=== PATIENT | female | born 1980 | race Caucasian/White ===

== ENCOUNTER 2018-10-25 13:59 | Emergency (ER) | payer OTHER ==
[2018-10-25 14:15] VITALS: BP 116/55; PULSE 81; TEMP 98; BMI 23.5
--- NOTE | 2018-10-25 15:25 | PDOC ---
History of Present Illness - General Chief Complaint: Headache Stated Complaint: LIGHTHEADED, HEADACHE Time Seen by Provider: 10/25/18 15:20 History Source: Patient Exam Limitations: No Limitations - History of Present Illness Initial Comments: 10/25/18 18:36 Patient is an otherwise healthy 38-year-old female who presents to the ER for a headache. Patient states that she's had a headache for the past 2 months on and off. She states that last night the pain became more intense on the right side so she wanted to come to the ER for evaluation today. She states that she also felt some numbness and tingling in her right arm. She also associates neck pain and dizziness with her symptoms. She denies photophobia, phonophobia, fevers, chills, nausea, vomiting, weakness to the extremities, chest pain, shortness of breath. Past History - Travel Traveled outside of the country in the last 30 days: No Close contact w/someone who was outside of country & ill: No - Past Medical History Allergies/Adverse Reactions: Allergies Allergy/AdvReac Type Severity Reaction Status Date / Time No Known Allergies Allergy Verified 10/25/18 14:13 Home Medications: Ambulatory Orders Ibuprofen 600 mg PO Q6H #30 tablet 10/25/18 Ibuprofen [Advil -] 400 mg PO QID PRN 10/25/18 COPD: No - Suicide/Smoking/Psychosocial Hx Smoking History: Never smoked Hx Alcohol Use: Yes (SOCIAL) Drug/Substance Use Hx: No Substance Use Type: None Review of Systems - Review of Systems Able to Perform ROS?: Yes Comments:: 10/25/18 15:25 CONSTITUTIONAL: Absent: fever, chills, diaphoresis, generalized weakness, malaise, loss of appetite HEENT: Absent: rhinorrhea, nasal congestion, throat pain, throat swelling, difficulty swallowing, mouth swelling, ear pain, eye pain, visual Changes CARDIOVASCULAR: Absent: chest pain, loss of consciousness, palpitations, irregular heart rate, peripheral edema RESPIRATORY: Absent: cough, shortness of breath, dyspnea with exertion, orthopnea, wheezing, stridor, hemoptysis GASTROINTESTINAL: Absent: abdominal pain, abdominal distension, nausea, vomiting, diarrhea, constipation, melena, hematochezia GENITOURINARY: Absent: dysuria, frequency, urgency, hesitancy, hematuria, flank pain, genital pain MUSCULOSKELETAL: Absent: myalgia, arthralgia, joint swelling SKIN: Absent: rash, itching, pallor HEMATOLOGIC/IMMUNOLOGIC: Absent: easy bleeding, easy bruising, lymphadenopathy, frequent infections ENDOCRINE: Absent: unexplained weight gain, unexplained weight loss, heat intolerance, cold intolerance NEUROLOGIC: Present: headache Absent: headache, focal weakness or paresthesias, dizziness, unsteady gait, seizure, mental status changes, bladder or bowel incontinence PSYCHIATRIC: Absent: anxiety, depression, suicidal or homicidal ideation, hallucinations. Is the patient limited [place] proficient: No *Physical Exam - Vital Signs Last Vital Signs Temp Pulse Resp BP Pulse Ox 98 F 81 18 116/55 L 100 10/25/18 14:13 10/25/18 14:13 10/25/18 14:13 10/25/18 14:13 10/25/18 14:13 - Physical Exam Comments: 10/25/18 15:25 GENERAL: Well developed, well nourished. Awake and alert. No acute distress. HEENT: Normocephalic, atraumatic. PERRLA, EOMI. No conjunctival pallor. Sclera are non- icteric. Moist mucous membranes. Oropharynx is clear. NECK: Supple. Full ROM. No JVD. Carotid pulses 2+ and symmetric, without bruits. No thyromegaly. No lymphadenopathy. CARDIOVASCULAR: Regular rate and rhythm. No murmurs, rubs, or gallops. Distal pulses are 2+ and symmetric. PULMONARY: No evidence of respiratory distress. Lungs clear to auscultation bilaterally. No wheezing, rales or rhonchi. ABDOMINAL: Soft. Non-tender. Non-distended. No rebound or guarding. No organomegaly. Normoactive bowel sounds. MUSCULOSKELETAL Normal range of motion at all joints. No bony deformities or tenderness. No CVA tenderness. EXTREMITIES: No cyanosis. No clubbing. No edema. No calf tenderness. SKIN: Warm and dry. Normal capillary refill. No rashes. No jaundice. NEUROLOGICAL: Alert, awake, appropriate. Cranial nerves 2-12 intact. No deficits to light touch and temperature in face, upper extremities and lower extremities. No motor deficits in the in face, upper extremities and lower extremities. Normoreflexic in the upper and lower extremities. Normal speech. Toes are down- going bilaterally. Gait is normal without ataxia. PSYCHIATRIC: Cooperative. Good eye contact. Appropriate mood and affect. Moderate Sedation - Procedure Monitoring Vital Signs: Procedure Monitoring Vital Signs Temperature 98 F 10/25/18 14:13 Pulse Rate 81 10/25/18 14:13 Respiratory Rate 18 10/25/18 14:13 Blood Pressure 116/55 L 10/25/18 14:13 O2 Sat by Pulse Oximetry (%) 100 10/25/18 14:13 ED Treatment Course - LABORATORY CBC & Chemistry Diagram: 10/25/18 16:15 10/25/18 16:15 Medical Decision Making - Medical Decision Making 10/25/18 18:38 Patient is a 38-year-old female otherwise healthy who presents to the ER for 2 months of intermittent headache. On exam patient is neurologically intact with no focal findings. Gait is intact. Patient states that this point the numbness and tingling in her right arm has resolved, as well as her neck pain Patient able to fully flex and extend neck. Negative Brudzinski and Kernig signs. Lab work is unremarkable at this time. Patient currently pending CT read. Patient given Reglan and Benadryl for her symptoms. 10/25/18 18:52 CT head is negative for acute pathology. No ischemia, bleed. Ventricles are a normal size Will give toradol Most likley a tension headache DC home I discussed the physical exam findings, ancillary test results and final diagnoses with the patient. I answered all of the patient's questions. The patient was satisfied with the care received and felt comfortable with the discharge plan and treatment plan. The Patient agrees to follow up with the primary care physician/specialist within 24-72 hours. Return precautions were given. *DC/Admit/Observation/Transfer Diagnosis at time of Disposition: Headache Qualifiers: Headache type: unspecified Headache chronicity pattern: acute headache Intractability: not intractable Qualified Code(s): R51 - Headache - Discharge Dispostion Disposition: HOME Condition at time of disposition: Stable Decision to Admit order: No - Referrals Referrals: Jerrod Esteban MD [Staff Physician] - - Patient Instructions Printed Discharge Instructions: DI for Headache Additional Instructions: You were evaluated for your headache today. Your CAT scan was normal today. Please drink plenty of fluids. You may take Motrin 600 mg every 6 hours as needed for pain not to exceed 3000 mg a day. Please follow up with neurology this week. Referral has been provided for you. Return to the ER for fevers, chills, worsening pain despite treatment, weakness to the extremities, numbness and tingling or if you have any changes in your symptoms. Usted fue evaluado para mack dolor de bri hoy. Tu TAC fue normal hoy. Por favor, shadia muchos lquidos. Puede uday Motrin 600 mg cada 6 horas segn sea necesario para que el dolor no exceda los 3000 mg al da. Por favor, sigue con neurologa esta semana. La referencia se flores proporcionado para usted. Regrese a la uday de emergencias para las fiebres, escalofros, dolor que empeora a pesar del tratamiento, debilidad en las extremidades, entumecimiento y hormigueo o si tiene algn cambio en slim sntomas. Print Language: IRISH - Post Discharge Activity
[2018-10-25] MEDS ORDERED: METOCLOPRAMIDE HCL INJECTION 10 MG/2 ML VIAL IVPB ONE (15:37)
[2018-10-25] MEDS ORDERED: SODIUM CHLORIDE 1,000 ML IV STA (15:37)
[2018-10-25] MEDS ORDERED: METOCLOPRAMIDE HCL INJECTION 10 MG/2 ML VIAL ONE (15:59)
[2018-10-25 16:49] LABS: BASO % 0.4 % (0-2.0); HEMOGLOBIN 12.3 GM/dL (10.7-15.3); LYMPH % 14.3 % (8-40); MCH 29.5 pg (25.7-33.7); MCHC 35.2 g/dl (32.0-36.0); MEAN CELL VOLUME 83.9 fl (80-96); MEAN PLT VOLUME 9.1 fl (7.5-11.1); MONO % 5.9 % (3.8-10.2); NEUT % 78.4 % (42.8-82.8); PLATELET COUNT 235 K/MM3 (134-434); RBC 4.17 M/mm3 (3.60-5.2)
[2018-10-25 17:16] LABS: ALBUMIN 3.8 g/dl (3.4-5.0); ALK PHOS 92 U/L (45-117); ANION GAP 6 MMOL/L (8-16); BILIRUBIN,TOTAL 1.3 mg/dL (0.2-1); BLOOD UREA NITROGEN 9 mg/dL (7-18); CALCIUM 9.1 mg/dL (8.5-10.1); CHLORIDE 104 mmol/L (98-107); CO2 26 mmol/L (21-32); CREATININE 0.6 mg/dL (0.55-1.3); GLUCOSE,RANDOM 90 mg/dL (74-106); POTASSIUM 4.4 mmol/L (3.5-5.1); SGOT/AST 28 U/L (15-37); SGPT/ALT 30 U/L (13-61); SODIUM 136 mmol/L (136-145); TOT PROT 8.4 g/dl (6.4-8.2)
[2018-10-25] MEDS ORDERED: KETOROLAC TROMETHAMINE 30 MG/1 ML VIAL IVPUSH ONE (18:51)
[2018-10-25] MEDS ORDERED: KETOROLAC TROMETHAMINE 30 MG/1 ML VIAL ONE (19:18)
== END 2018-10-25 19:32 | disposition home or self-care (01) ==
LOC: JER 13:59
PROC: 3E033GC Introduction of Other Therapeutic Substance into Peripheral Vein, Percutaneous Approach (ICD-10-PCS; principal; 2018-10-25)
PROC: 3E033GC Introduction of Other Therapeutic Substance into Peripheral Vein, Percutaneous Approach (ICD-10-PCS; 2018-10-25)
PROC: 3E0333Z Introduction of Anti-inflammatory into Peripheral Vein, Percutaneous Approach (ICD-10-PCS; 2018-10-25)
DX: R51 Headache (principal)
CPT/HCPCS: 36415; 70450-TC; 80053; 84702; 85025; 99282-25; J7030

== ENCOUNTER 2021-06-04 13:10 | Emergency (ER) | payer OTHER ==
[2021-06-04 13:24] VITALS: TEMP 98.4; BMI 30.4
[2021-06-04] MEDS ORDERED: SODIUM CHLORIDE 1,000 ML IV STA (14:00)
[2021-06-04] MEDS ORDERED: METOCLOPRAMIDE HCL INJECTION 10 MG/2 ML VIAL IVPB ONE (14:00)
[2021-06-04] MEDS ORDERED: KETOROLAC TROMETHAMINE 60 MG/2 ML VIAL IVPUSH ONE (14:00)
[2021-06-04] MEDS ORDERED: METOCLOPRAMIDE HCL INJECTION 10 MG/2 ML VIAL ONE (14:06)
[2021-06-04] MEDS ORDERED: KETOROLAC TROMETHAMINE 15 MG/ML VIAL ONE (14:06)
[2021-06-04] MEDS ORDERED: ACETAMINOPHEN 1000 MG/100 ML VIAL (NON FORMULARY) IVPB ONE (15:15)
[2021-06-04] MEDS ORDERED: ACETAMINOPHEN INJECTION 100 ML IVPB ONE (15:24)
[2021-06-04 20:01] VITALS: BP 124/77; PULSE 68
== END 2021-06-04 20:01 | disposition home or self-care (01) ==
LOC: JER 13:10 → JERFT 13:10
PROC: 3E033GC Introduction of Other Therapeutic Substance into Peripheral Vein, Percutaneous Approach (ICD-10-PCS; principal; 2021-06-04)
DX: R51.9 Headache, unspecified (principal)
CPT/HCPCS: 70450-TC; 99285-25; J0131

== ENCOUNTER → 2022-07-08 | Emergency (ER) | payer OTHER ==
[~2022-07-08] MED LIST: CEFTRIAXONE 1 GM/50 ML BAG ONE; CEFTRIAXONE 1,000 MG in DEXTROSE 5%-WATER - 50 ML IVPB ONE; SODIUM CHLORIDE 1,000 ML IV STA; VANCOMYCIN 1 GM in D5W (PRE-DOCKED) 1,000 MG/250 ML IVPB ONE; VANCOMYCIN/WATER FOR INJ (PEG) 1,000 MG/200 ML BAG IVPB ONE
[2022-07-08 14:16] VITALS: RESP 18; BMI 21.9
[2022-07-08 15:42] LABS: EPI CELLS 12 /uL (0-25.1); HYALINE CASTS 0 /uL (0-3.1); URINE APPEARANCE CLEAR; URINE BACTERIA 116 /uL (0-1359); URINE BILIRUBIN NEGATIVE (NEGATIVE); URINE COLOR YELLOW; URINE GLUCOSE (UA) NEGATIVE (NEGATIVE); URINE KETONE NEGATIVE (NEGATIVE); URINE LEUK ESTERASE NEGATIVE (NEGATIVE); URINE NITRITE NEGATIVE (NEGATIVE); URINE PROTEIN NEGATIVE (NEGATIVE); URINE UROBILINOGEN 0.2 mg/dL (0.2-1.0); URINE WBC 4 /uL (0-25.8)
[2022-07-08 15:43] LABS: HCG,QUALITATIVE URINE Negative
[2022-07-08 15:44] LABS: INR 1.12 (0.83-1.09); PROTHROMBIN TIME (PATIENT) 12.9 SEC (9.7-13.0)
[2022-07-08 15:45] LABS: URINE RBC 53.8 /uL (0-23.9)
[2022-07-08 15:46] LABS: BASO % 0.4 % (0-2.0); EOS % 0.7 % (0-4.5); HEMATOCRIT 34.5 % (32.4-45.2); HEMOGLOBIN 11.7 GM/dL (10.7-15.3); LYMPH % 20.9 % (8-40); MCH 30.6 pg (25.7-33.7); MCHC 33.9 g/dl (32.0-36.0); MEAN CELL VOLUME 90.2 fl (80-96); MEAN PLT VOLUME 8.2 fl (7.5-11.1); MONO % 6.3 % (3.8-10.2); NEUT % 71.7 % (42.8-82.8); PLATELET COUNT 284 10^3/uL (134-434); RBC 3.83 M/mm3 (3.60-5.2); RDW 14.1 % (11.6-15.6); WHITE BLOOD COUNT 6.9 K/mm3 (4.0-10.0)
[2022-07-08 16:06] LABS: ALBUMIN 3.8 g/dl (3.4-5.0)
[2022-07-08 16:09] LABS: CREATININE 0.5 mg/dL (0.55-1.3)
[2022-07-08 16:10] LABS: BILIRUBIN,TOTAL 1.3 mg/dL (0.2-1)
[2022-07-08 20:58] VITALS: PULSE 75; TEMP 98.6
[2022-07-08 21:00] VITALS: BP 139/80
== END | disposition short-term general hospital (02) ==
LOC: JER 13:54
PROC: 3E033GC Introduction of Other Therapeutic Substance into Peripheral Vein, Percutaneous Approach (ICD-10-PCS; principal; 2022-07-08)
DX: M65.841 Other synovitis and tenosynovitis, right hand (principal)
CPT/HCPCS: 0241U-QW; 36415; 73130-TC-RT-FY; 80053; 81003; 83605; 84703; 85025; 85610; 87086; 93005; 93010; 99285-25

== ENCOUNTER 2023-01-30 22:04 | Emergency (ER) | payer OTHER ==
[2023-01-30 22:27] VITALS: BP 138/82; PULSE 74; RESP 18; TEMP 98.6; BMI 27.1
[2023-01-30 23:55] LABS: THROAT:GRP A STREP NOT DETECTED (NOTDETECTED)
[2023-01-31] MEDS ORDERED: DEXAMETHASONE SOD PHOSPHATE 10 MG/1 ML VIAL IM ONE (00:42)
[2023-01-31] MEDS ORDERED: DEXAMETHASONE SOD PHOSPHATE 10 MG/1 ML VIAL ONE (00:43)
== END 2023-01-31 00:47 | disposition home or self-care (01) ==
LOC: JER 22:04
PROC: 3E0233Z Introduction of Anti-inflammatory into Muscle, Percutaneous Approach (ICD-10-PCS; principal; 2023-01-31)
DX: R07.0 Pain in throat (principal); R05.1 Acute cough; R63.8 Other symptoms and signs concerning food and fluid intake; R51.9 Headache, unspecified; B34.9 Viral infection, unspecified; Z20.822 Contact with and (suspected) exposure to COVID-19
CPT/HCPCS: 0241U-QW; 87651; 99284-25; J1100

== ENCOUNTER 2023-04-08 09:52 | Emergency (ER) | payer OTHER ==
[2023-04-08 10:02] VITALS: BP 124/72; PULSE 81; RESP 18; BMI 25.3
[2023-04-08 10:11] VITALS: TEMP 98.7
[2023-04-08] MEDS ORDERED: ACETAMINOPHEN 500 MG TABLET (FP) PO ONE (11:02)
[2023-04-08] MEDS ORDERED: AMOX TR/POT CLAV 875MG/125MG TABLETS (FP) PO ONE (11:03)
[2023-04-08] MEDS ORDERED: AMOX TR/POT CLAV 875MG/125MG TABLETS (FP) ONE (11:13)
[2023-04-08] MEDS ORDERED: ACETAMINOPHEN 500 MG TABLET (FP) ONE (11:14)
[2023-04-08 11:55] LABS: BASO % 0.4 % (0-2.0); EOS % 1.4 % (0-4.5); HEMATOCRIT 34.5 % (32.4-45.2); HEMOGLOBIN 11.6 GM/dL (10.7-15.3); LYMPH % 23.6 % (8-40); MCH 30.5 pg (25.7-33.7); MCHC 33.5 g/dl (32.0-36.0); MEAN PLT VOLUME 8.3 fl (7.5-11.1); MONO % 6.8 % (3.8-10.2); NEUT % 67.8 % (42.8-82.8); PLATELET COUNT 253 10^3/uL (134-434); RBC 3.79 M/mm3 (3.60-5.2); RDW 14.6 % (11.6-15.6); WHITE BLOOD COUNT 6.3 K/mm3 (4.0-10.0)
[2023-04-08 12:09] LABS: POTASSIUM 4.2 mmol/L (3.5-5.1)
[2023-04-08 12:11] LABS: CALCIUM 9.2 mg/dL (8.5-10.1)
[2023-04-08 12:12] LABS: ALBUMIN 3.6 g/dl (3.4-5.0)
[2023-04-08 12:15] LABS: CREATININE 0.5 mg/dL (0.55-1.3)
[2023-04-08 12:17] LABS: BILIRUBIN,TOTAL 0.6 mg/dL (0.2-1); TOT PROT 7.9 g/dl (6.4-8.2)
== END 2023-04-08 13:32 | disposition home or self-care (01) ==
LOC: JER 09:52 → JERFT 09:52
DX: H57.12 Ocular pain, left eye (principal); R51.9 Headache, unspecified; H01.9 Unspecified inflammation of eyelid
CPT/HCPCS: 36415; 70450-TC; 80053; 85025; 99284-25

== ENCOUNTER 2023-08-18 07:00 | Emergency (ER) | payer OTHER ==
[2023-08-18 07:29] VITALS: BMI 26.4
[2023-08-18] MEDS ORDERED: METOCLOPRAMIDE HCL INJECTION 10 MG/2 ML VIAL IVPB ONE (07:54)
[2023-08-18] MEDS ORDERED: MECLIZINE HCL 25 MG TABLET (FP) PO ONE (07:54)
[2023-08-18 08:15] VITALS: PULSE 67
[2023-08-18] MEDS ORDERED: MECLIZINE HCL 25 MG TABLET (FP) ONE (08:28)
[2023-08-18] MEDS ORDERED: METOCLOPRAMIDE HCL INJECTION 10 MG/2 ML VIAL ONE (08:28)
[2023-08-18] MEDS ORDERED: SODIUM CHLORIDE 0.9% 500 ML INFUS.BAG IV ONE (08:31)
[2023-08-18 08:43] LABS: BASO % 0.5 % (0-2.0); HEMATOCRIT 37.3 % (32.4-45.2); HEMOGLOBIN 12.7 GM/dL (10.7-15.3); LYMPH % 31.3 % (8-40); MCH 30.5 pg (25.7-33.7); MCHC 34.1 g/dl (32.0-36.0); MEAN CELL VOLUME 89.3 fl (80-96); MEAN PLT VOLUME 8.3 fl (7.5-11.1); MONO % 5.6 % (3.8-10.2); NEUT % 60.6 % (42.8-82.8); PLATELET COUNT 258 10^3/uL (134-434); RBC 4.17 M/mm3 (3.60-5.2); RDW 14.3 % (11.6-15.6); WHITE BLOOD COUNT 4.8 K/mm3 (4.0-10.0)
[2023-08-18 08:52] LABS: BLOOD UREA NITROGEN 8.8 mg/dL (7-18)
[2023-08-18 08:53] LABS: ALBUMIN 3.6 g/dl (3.4-5.0)
[2023-08-18 08:56] LABS: CREATININE 0.6 mg/dL (0.55-1.3)
[2023-08-18 08:58] LABS: BILIRUBIN,TOTAL 0.8 mg/dL (0.2-1); TOT PROT 7.9 g/dl (6.4-8.2)
[2023-08-18] MEDS ORDERED: ACETAMINOPHEN 1000 MG/100 ML BAG IVPB ONE (09:22)
[2023-08-18 09:38] LABS: EPI CELLS >36 /uL (0-25.1); HYALINE CASTS 0 /uL (0-3.1); PH,URINE 6.5 (5.0-8.0); URINE APPEARANCE CLEAR; URINE BACTERIA 1818 /uL (0-1359); URINE BILIRUBIN NEGATIVE (NEGATIVE); URINE COLOR YELLOW; URINE GLUCOSE (UA) NEGATIVE (NEGATIVE); URINE KETONE NEGATIVE (NEGATIVE); URINE LEUK ESTERASE TRACE (NEGATIVE); URINE NITRITE NEGATIVE (NEGATIVE); URINE PROTEIN NEGATIVE (NEGATIVE); URINE RBC 44 /uL (0-23.9); URINE UROBILINOGEN 0.2 mg/dL (0.2-1.0); URINE WBC 15 /uL (0-25.8)
[2023-08-18] MEDS ORDERED: ACETAMINOPHEN INJECTION 100 ML IVPB ONE (09:43)
[2023-08-18 14:10] VITALS: BP 122/76; RESP 16; TEMP 98.6
[2023-08-18 14:12] LABS: EPI CELLS 29 /uL (0-25.1); HYALINE CASTS 0 /uL (0-3.1); PH,URINE 5.5 (5.0-8.0); URINE APPEARANCE CLEAR; URINE BACTERIA 213 /uL (0-1359); URINE BILIRUBIN NEGATIVE (NEGATIVE); URINE COLOR YELLOW; URINE GLUCOSE (UA) NEGATIVE (NEGATIVE); URINE KETONE NEGATIVE (NEGATIVE); URINE LEUK ESTERASE NEGATIVE (NEGATIVE); URINE NITRITE NEGATIVE (NEGATIVE); URINE PROTEIN NEGATIVE (NEGATIVE); URINE RBC 15 /uL (0-23.9); URINE UROBILINOGEN 0.2 mg/dL (0.2-1.0); URINE WBC 7 /uL (0-25.8)
== END 2023-08-18 14:10 | disposition home or self-care (01) ==
LOC: JER 07:00
PROC: 3E033NZ Introduction of Analgesics, Hypnotics, Sedatives into Peripheral Vein, Percutaneous Approach (ICD-10-PCS; principal; 2023-08-18)
PROC: 3E033GC Introduction of Other Therapeutic Substance into Peripheral Vein, Percutaneous Approach (ICD-10-PCS; 2023-08-18)
DX: R06.02 Shortness of breath (principal); R42 Dizziness and giddiness; R07.9 Chest pain, unspecified; R50.9 Fever, unspecified; R51.9 Headache, unspecified; R11.2 Nausea with vomiting, unspecified; R05.9 Cough, unspecified; R35.0 Frequency of micturition; Z20.822 Contact with and (suspected) exposure to COVID-19
CPT/HCPCS: 0241U-QW; 36415; 70450-TC; 71045-TC-FY; 80053; 81003; 84484; 84703; 85025; 87086; 93005; 93010; 99285-25

== ENCOUNTER 2024-04-09 13:19 | Emergency (ER) | payer OTHER ==
[2024-04-09 13:26] VITALS: BP 138/74; PULSE 68; RESP 16; TEMP 98.2; BMI 27.4
[2024-04-09] MEDS ORDERED: IBUPROFEN 600 MG TABLET (FP) PO ONE (14:21)
[2024-04-09] MEDS: IBUPROFEN 600 MG TABLET (FP) PO ONE (14:24)
== END 2024-04-09 14:41 | disposition home or self-care (01) ==
LOC: JERFT 13:19
DX: H00.021 Hordeolum internum right upper eyelid (principal); L03.213 Periorbital cellulitis; M79.651 Pain in right thigh; M79.89 Other specified soft tissue disorders
CPT/HCPCS: 99283-25